=== PATIENT | female | born 1990 | race Caucasian/White ===

== ENCOUNTER 2017-12-23 23:05 | Emergency (ER) | payer BC ==
--- NOTE | 2017-12-23 23:40 | ERPHSYRPT ---
- History of Present Illness Time Seen by Provider: 12/23/17 23:34 Source: patient, family Exam Limitations: no limitations Patient Subjective Stated Complaint: pt jumped off mower and landed on ankle Triage Nursing Assessment: pt is alert and oriented. pt was brought in via wheelchair. pt has some obvious swelling to right ankle. some bruising. no laceration or external injury. sensation intact. pt unable to put weight on foot. pedal pulses strong and equal. Physician History: The patient is a 27-year-old female with her family complaining that she twisted her right ankle around 9 PM when she stepped off a lawnmower, twisting her ankle. She placed ice on it. It is swollen and hurts for her to walk on it. Occurred: this evening Reason for Fall: tripped, fell from height Injuries/Pain Location: lower extremity (right ankle) Loss of Consciousness: no loss of consciousness Quality: aching, sharpness Severity of Pain-Max: moderate Severity of Pain-Current: moderate Modifying Factors: Improves With: cold therapy Associated Symptoms (Fall): trouble walking Allergies/Adverse Reactions: Latex, Natural Rubber Allergy (Verified 12/23/17 23:20) Hx Tetanus, Diphtheria Vaccination/Date Given: No Hx Influenza Vaccination/Date Given: No Immunizations Up to Date: Yes - Review of Systems Constitutional: No Fever, No Chills Eyes: No Symptoms Ears, Nose, & Throat: No Symptoms Respiratory: No Cough, No Dyspnea Cardiac: No Chest Pain, No Edema, No Syncope Abdominal/Gastrointestinal: No Abdominal Pain, No Nausea, No Vomiting, No Diarrhea Genitourinary Symptoms: No Dysuria Musculoskeletal: Fall, Injury, Joint Swelling Skin: No Rash Neurological: No Dizziness, No Focal Weakness, No Sensory Changes Psychological: No Symptoms Endocrine: No Symptoms Hematologic/Lymphatic: No Symptoms Immunological/Allergic: No Symptoms All Other Systems: Reviewed and Negative - Past Medical History Pertinent Past Medical History: Yes Neurological History: No Pertinent History ENT History: No Pertinent History Cardiac History: No Pertinent History Respiratory History: No Pertinent History Endocrine Medical History: No Pertinent History Musculoskeletal History: No Pertinent History GI Medical History: No Pertinent History History: No Pertinent History Psycho-Social History: No Pertinent History Female Reproductive Disorders: No Pertinent History Other Medical History: anemia - Past Surgical History Past Surgical History: Yes Neuro Surgical History: No Pertinent History Cardiac: No Pertinent History Respiratory: No Pertinent History Gastrointestinal: No Pertinent History Genitourinary: No Pertinent History Musculoskeletal: No Pertinent History Female Surgical History: No Pertinent History - Social History Smoking Status: Never smoker Exposure to second hand smoke: No Drug Use: none - Female History Hx Last Menstrual Period: 12/01/17 Hx Now: No - Nursing Vital Signs Nursing Vital Signs: Initial Vital Signs Pulse Rate 63 12/23/17 23:06 Respiratory Rate 16 12/23/17 23:06 Blood Pressure 104/75 12/23/17 23:06 O2 Sat by Pulse Oximetry 96 12/23/17 23:06 Pain Scale Pain Intensity 7 - [place] Coma Score Best Eye Response ([place]): (4) open spontaneously Best Verbal Response ([place]): (5) oriented Best Motor Response ([place]): (6) obeys commands [place] Total: 15 - Physical Exam General Appearance: no apparent distress, alert Head Injury: no evidence of injury Eye Exam: PERRL/EOMI ENT Exam: airway nml Neck Exam: normal inspection, No tenderness Respiratory/Chest Exam: normal breath sounds, No chest tenderness, No respiratory distress Cardiovascular Exam: normal heart sounds, regular rate/rhythm Gastrointestinal Exam: soft, No tenderness, No distention, No guarding, No ecchymosis Rectal Exam: not done Back Exam: normal inspection, No vertebral tenderness Extremity Exam: joint swelling (right lateral malleolus), limited range of motion, evidence of injury, pain with movement, swelling, tenderness Neurologic Exam: alert, oriented x 3, cooperative, sensation nml, No motor deficits Skin Exam: normal color, warm, dry SpO2 Interpretation: normal SpO2: 96 Oxygen Delivery: Room Air - Radiology Exams Right Ankle X-ray Interpretation: Interpreted by me, Negative, No Fracture Ordered Tests: Active Orders 24 hr Category Date Time Status Cold Application STAT Care 12/23/17 23:40 Active ANKLE (3 VIEWS) Stat Exams 12/23/17 23:40 Ordered - Departure Time of Disposition: 00:14 Departure Disposition: Home Clinical Impression: Moderate right ankle sprain Condition: Stable Critical Care Time: No Referrals: CELIA BECERRA [Primary Care Provider] - Additional Instructions: You have a moderate sprain of your right ankle. Keep the Declan wrap applied as needed. Take Tylenol 1000 mg and ibuprofen 800 mg every 8 hours as needed. Apply ice to the ankle 3 times a day for 15 minutes at a time. Elevate your ankle as much as possible for the next 2 days. Use crutches as needed. Follow- up in 2-3 days if no improvement.
[2017-12-24 00:09] VITALS: BP 103/58
[2017-12-24 00:39] VITALS: PULSE 61; O2SAT 97
--- NOTE | 2017-12-24 08:37 | XRAY ---
Indication: Pain and swelling following injury. Comparison: None 3 views of the right ankle demonstrates mild soft tissue swelling. No other bony, articular, or soft tissue abnormalities.
== END 2017-12-24 00:37 | disposition home or self-care (01) ==
LOC: ED 23:05
DX: S93.401A Sprain of unspecified ligament of right ankle, initial encounter (principal); X50.1XXA Overexertion from prolonged static or awkward postures, initial encounter; Y93.H2 Activity, gardening and landscaping; Y92.007 Garden or yard of unspecified non-institutional (private) residence as the place of occurrence of the external cause
CPT/HCPCS: 73610; 99283

== ENCOUNTER 2023-05-03 15:44 | Emergency (ER) | payer BC ==
[2023-05-03 16:05] VITALS: TEMP 97.4; O2SAT 99
[2023-05-03] MEDS ORDERED: Sodium Chloride 0.9% 1000 ML 1,000 ML IV STA (16:43)
[2023-05-03 16:52] LABS: HCG URINE TEST NEGATIVE (NEGATIVE)
--- NOTE | 2023-05-03 16:53 | ERPHSYRPT ---
- History of Present Illness Time Seen by Provider: 05/03/23 15:48 Source: patient Exam Limitations: no limitations Patient Subjective Stated Complaint: here for vaginal bleeding since friday, she states she is bleeding through tampon and pad. has some clots Triage Nursing Assessment: pt alert walked in. resp easy. skin w/dp. abd soft, urine clear. no edema noted Physician History: 32 years old female with history of Graves' disease, PCOS with irregular cycles not taking any medications presented in the ER with heavy bleeding since yesterday evening. Patient reports she went through multiple pads and tampon. Denies any pelvic or abdominal cramping/pain. Patient report having some clots. Dark blood. Reports having similar episodes in the past and does have history of anemia which gets worse. She is supposed to take iron but has not been. She does report feeling weak fatigued tired and some palpitations. Patient reports since noon her bleeding is a little better. Allergies/Adverse Reactions: Latex, Natural Rubber Allergy (Verified 05/03/23 16:05) Hx Tetanus, Diphtheria Vaccination/Date Given: No Hx Influenza Vaccination/Date Given: No Hx Pneumococcal Vaccination/Date Given: No Travel Risk - International Travel Have you traveled outside of the country in past 3 weeks: No - Coronavirus Screening Are you exhibiting any of the following symptoms?: No - Vaccine Status Have you recieved a Covid-19 vaccination: Yes [employer]: Goozzy - Vaccination Dates Date of 2cond Vaccination (if applicable): 2020 - Review of Systems Constitutional: Fatigue, Weakness Eyes: No Symptoms Ears, Nose, & Throat: No Symptoms Respiratory: No Symptoms Cardiac: No Symptoms Abdominal/Gastrointestinal: No Symptoms Genitourinary Symptoms: Vaginal Bleeding Musculoskeletal: No Symptoms Skin: No Symptoms Neurological: No Symptoms Psychological: No Symptoms Hematologic/Lymphatic: No Symptoms, Easy Bruising Immunological/Allergic: No Symptoms - Past Medical History Pertinent Past Medical History: Yes Neurological History: No Pertinent History ENT History: No Pertinent History Cardiac History: No Pertinent History Respiratory History: No Pertinent History Endocrine Medical History: No Pertinent History Musculoskeletal History: No Pertinent History GI Medical History: No Pertinent History History: No Pertinent History Psycho-Social History: No Pertinent History Female Reproductive Disorders: No Pertinent History Other Medical History: anemia ,graves disease - Past Surgical History Past Surgical History: Yes Neuro Surgical History: No Pertinent History Cardiac: No Pertinent History Respiratory: No Pertinent History Gastrointestinal: No Pertinent History Genitourinary: No Pertinent History Musculoskeletal: No Pertinent History Female Surgical History: No Pertinent History - Social History Smoking Status: Never smoker Exposure to second hand smoke: No Drug Use: none Patient Lives Alone: No - Female History Hx Last Menstrual Period: today Hx Now: No - Nursing Vital Signs Nursing Vital Signs: Initial Vital Signs Temperature 97.4 F 05/03/23 16:04 Pulse Rate 99 H 05/03/23 16:04 Respiratory Rate 18 05/03/23 16:04 Blood Pressure 103/74 05/03/23 16:04 O2 Sat by Pulse Oximetry 99 05/03/23 16:04 Pain Scale Pain Intensity 0 - Physical Exam General Appearance: no apparent distress, alert Eye Exam: PERRL/EOMI Ears, Nose, Throat Exam: normal ENT inspection Neck Exam: normal inspection, non-tender, supple, full range of motion Respiratory Exam: normal breath sounds, lungs clear Cardiovascular Exam: regular rate/rhythm, normal heart sounds Gastrointestinal/Abdomen Exam: soft, normal bowel sounds, No tenderness Back Exam: normal inspection, normal range of motion Extremity Exam: normal inspection, normal range of motion Neurologic Exam: alert, oriented x 3, cooperative Skin Exam: normal color SpO2 Interpretation: normal SpO2: 99 O2 Delivery: Room Air Ordered Tests: Active Orders 24 hr Category Date Time Status IV Insertion STAT Care 05/03/23 16:43 Active CBC W DIFF Stat Lab 05/03/23 17:00 Completed CMP Stat Lab 05/03/23 17:00 Completed HCG QUALITATIVE, URINE Stat Lab 05/03/23 16:46 Completed TSH [TSH, 3RD Generation] Stat Lab 05/03/23 17:00 Completed UA W/RFX UR CULTURE Stat Lab 05/03/23 16:46 Completed Medication Summary Discontinued Medications Generic Name Dose Route Start Last Admin Trade Name Freq PRN Reason Stop Dose Admin Ferrous Sulfate 325 mg 05/03/23 19:12 Ferrous Sulfate 325 Mg Tablet PO 05/03/23 19:13 ONCE STA Sodium Chloride 1,000 mls @ 999 mls/hr 05/03/23 16:43 05/03/23 18:26 Sodium Chloride 0.9% 1000 Ml IV 05/03/23 17:43 Infused .Q1H1M STA Infusion Sodium Chloride Confirm 05/03/23 16:55 Sodium Chloride 0.9% 1000 Ml Administered 05/03/23 16:56 Dose 1,000 mls @ ud .ROUTE .STK-MED ONE Tranexamic Acid 1,000 mg/ 110 mls @ 660 mls/hr 05/03/23 18:20 05/03/23 18:31 Sodium Chloride IV 05/03/23 18:29 660 mls/hr ONCE ONE Administration Sodium Chloride Confirm 05/03/23 18:30 Sodium Chloride 0.9% Administered 05/03/23 18:31 Dose 100 mls @ ud .ROUTE .STK-MED ONE Medroxyprogesterone Acetate 10 mg 05/03/23 18:14 05/03/23 18:35 Medroxyprogesterone Acet 10 Mg Tablet PO 05/03/23 18:15 10 mg ONCE STA Administration Tranexamic Acid Confirm 05/03/23 18:29 Tranexamic Acid 1000 Mg/10 Ml Vial/Amp Administered 05/03/23 18:30 Dose 1,000 mg .ROUTE .STK-MED ONE Lab/Rad Data: Laboratory Result Diagrams 05/03/23 17:00 05/03/23 17:00 Laboratory Results 05/03/23 05/03/23 05/03/23 Range/Units 17:00 17:00 17:00 WBC 6.1 (4.0-10.5) x10^3/uL RBC 3.38 L (4.1-5.4) x10^6/uL Hgb 8.0 L (12.0-16.0) g/dL Hct 25.7 L (35-47) % MCV 76.0 L (78-100) fL MCH 23.7 L (26-32) pg MCHC 31.1 L (32-36) g/dL RDW 15.2 H (11.5-14.0) % Plt Count 302 (150-450) x10^3/uL MPV 9.7 (7.5-11.0) fL Gran % 55.9 (36.0-66.0) % Immature Gran % (Auto) 0.3 (0.00-0.4) % Nucleat RBC Rel Count 0.0 (0.00-0.1) % Eos # (Auto) 0.09 (0-0.5) x10^3/uL Immature Gran # (Auto) 0.02 (0.00-0.03) x10^3u/L Absolute Lymphs (auto) 2.15 (1.0-4.6) x10^3/uL Absolute Monos (auto) 0.43 (0.0-1.3) x10^3/uL Absolute Nucleated RBC 0.00 (0.00-0.01) x10^3u/L Lymphocytes % 35.0 (24.0-44.0) % Monocytes % 7.0 (0.0-12.0) % Eosinophils % 1.5 (0.00-5.0) % Basophils % 0.3 (0.0-0.4) % Absolute Granulocytes 3.43 (1.4-6.9) x10^3/uL Basophils # 0.02 (0-0.4) x10^3/uL Sodium 137 (137-145) mmol/L Potassium 3.6 (3.5-5.1) mmol/L Chloride 108 H (98-107) mmol/L Carbon Dioxide 21 L (22-30) mmol/L Anion Gap 12.0 (5-15) MEQ/L BUN 7 (7-17) mg/dL Creatinine 0.35 L (0.52-1.04) mg/dL Estimated GFR > 60.0 ML/MIN Glucose 73 L (74-106) mg/dL Calcium 8.3 L (8.4-10.2) mg/dL Total Bilirubin 0.30 (0.2-1.3) mg/dL AST 26 (14-36) U/L ALT 26 (0-35) U/L Alkaline Phosphatase 54 (38-126) U/L Serum Total Protein 6.2 L (6.3-8.2) g/dL Albumin 3.9 (3.5-5.0) g/dL TSH 3rd Generation 0.583 (0.47-4.68) mIU/L Urine Color (Yellow) Urine Appearance (Clear) Urine pH (4.6-8.0) Ur Specific [place] (1.005-1.030) Urine Protein (Negative) Urine Glucose (UA) (Negative) mg/dL Urine Ketones (Negative) Urine Blood (Negative) Urine Nitrite (Negative) Urine Bilirubin (Negative) Urine Urobilinogen (0.2) mg/dL Ur Leukocyte Esterase (Negative) U Hyaline Cast (Auto) (0-2) /LPF Urine Microscopic RBC (0-5) /HPF Urine Microscopic WBC (0-5) /HPF Ur Epithelial Cells (None Seen) /HPF Urine Bacteria (None Seen) /HPF Urine Culture Reflexed (NO) Urine HCG, Qual (NEGATIVE) 05/03/23 05/03/23 Range/Units 16:46 16:46 WBC (4.0-10.5) x10^3/uL RBC (4.1-5.4) x10^6/uL Hgb (12.0-16.0) g/dL Hct (35-47) % MCV (78-100) fL MCH (26-32) pg MCHC (32-36) g/dL RDW (11.5-14.0) % Plt Count (150-450) x10^3/uL MPV (7.5-11.0) fL Gran % (36.0-66.0) % Immature Gran % (Auto) (0.00-0.4) % Nucleat RBC Rel Count (0.00-0.1) % Eos # (Auto) (0-0.5) x10^3/uL Immature Gran # (Auto) (0.00-0.03) x10^3u/L Absolute Lymphs (auto) (1.0-4.6) x10^3/uL Absolute Monos (auto) (0.0-1.3) x10^3/uL Absolute Nucleated RBC (0.00-0.01) x10^3u/L Lymphocytes % (24.0-44.0) % Monocytes % (0.0-12.0) % Eosinophils % (0.00-5.0) % Basophils % (0.0-0.4) % Absolute Granulocytes (1.4-6.9) x10^3/uL Basophils # (0-0.4) x10^3/uL Sodium (137-145) mmol/L Potassium (3.5-5.1) mmol/L Chloride (98-107) mmol/L Carbon Dioxide (22-30) mmol/L Anion Gap (5-15) MEQ/L BUN (7-17) mg/dL Creatinine (0.52-1.04) mg/dL Estimated GFR ML/MIN Glucose (74-106) mg/dL Calcium (8.4-10.2) mg/dL Total Bilirubin (0.2-1.3) mg/dL AST (14-36) U/L ALT (0-35) U/L Alkaline Phosphatase (38-126) U/L Serum Total Protein (6.3-8.2) g/dL Albumin (3.5-5.0) g/dL TSH 3rd Generation (0.47-4.68) mIU/L Urine Color Yellow (Yellow) Urine Appearance Clear (Clear) Urine pH 5.5 (4.6-8.0) Ur Specific [place] <=1.005 (1.005-1.030) Urine Protein Negative (Negative) Urine Glucose (UA) Negative (Negative) mg/dL Urine Ketones 40 A (Negative) Urine Blood Large A (Negative) Urine Nitrite Negative (Negative) Urine Bilirubin Negative (Negative) Urine Urobilinogen 0.2 (0.2) mg/dL Ur Leukocyte Esterase Negative (Negative) U Hyaline Cast (Auto) NONE SEEN (0-2) /LPF Urine Microscopic RBC 0-2 (0-5) /HPF Urine Microscopic WBC 0-2 (0-5) /HPF Ur Epithelial Cells None Seen (None Seen) /HPF Urine Bacteria None Seen (None Seen) /HPF Urine Culture Reflexed NO (NO) Urine HCG, Qual NEGATIVE (NEGATIVE) - Progress Progress: improved, re-examined Air Movement: good Progress Note: 05/03/23 16:52 32 years old female with history of Graves' disease, PCOS with irregular cycles not taking any medications presented in the ER with heavy bleeding since yesterday evening. Patient reports she went through multiple pads and tampon. Denies any pelvic or abdominal cramping/pain. Patient report having some clots. Dark blood. Reports having similar episodes in the past and does have history of anemia which gets worse. She is supposed to take iron but has not been. She does report feeling weak fatigued tired and some palpitations. Patient reports since noon her bleeding is a little better. 05/03/23 19:34 Patient is hemodynamically stable. She is given fluids, on reevaluation she is feeling much better. She is ambulating in the ER without any limitation. Work- up showed normal white count but a hemoglobin of 8.0. She does not have any recent blood work done in the last couple of years and previous hemoglobin was in 13's. I believe patient has heavy periods and has chronic anemia. I have given her Provera and one-time dose of TXA IV. I hope it will improve her bleeding. I will continue with ferrous sulfate to go home and Provera for few days. I have discussed with Dr. Coffman, reviewed history, work-up and agreed with discharging home on Provera and outpatient follow-up with [facility]. I have discussed the results of work-up with patient and plan of discharge with outpatient follow-up and also signs symptoms of worsening needing return to ER which she seems understanding. Blood Culture(s) Obtained: No Antibiotics given: No Discussed with Dr.: Jose ([id number]) Counseled pt/family regarding: lab results, diagnosis, need for follow-up Medical Desision Making - Discussion of managment Care discussed with:: specialist (Dr. Coffman [id number]) Reviewed:: Test results, Need for additional workup Agreed on:: Treatment plan Will see patient: In office - Risk of complications The pt has a mod risk of morbidity or mortality based on: Need for prescription drug management - Departure Departure Disposition: Home Clinical Impression: Abnormal uterine bleeding (AUB), Blood loss anemia Condition: Stable Critical Care Time: No Referrals: CATHERINE FRENCH MD [Primary Care Provider] - Follow up with PCP 2 days JASMINA POWELL DO [ACTIVE STAFF] - Follow up/PCP as directed (In 2 days for reevaluation) Instructions: Heavy Periods (DC) Additional Instructions: Drink plenty of fluids to keep yourself well-hydrated. Continue with iron pills. Follow-up with [facility] for reevaluation in 2 days. Return to ER for worsening bleeding or if having chest pain palpitations, feeling dizzy lighthead ed etc. Prescriptions: Ferrous Sulfate 325 mg [Feosol 325 mg] 325 mg PO DAILY 30 Days #30 tablet Medroxyprogesterone Acet [Iqsxpny32 mg] 10 mg PO DAILY #7 tablet
[2023-05-03 16:55] LABS: ADD URINE CULTURE? NO (NO); Appearance Clear (Clear); Bacteria None Seen /HPF (None Seen); Bilirubin Negative (Negative); Blood Large (Negative); Epithelial Cells None Seen /HPF (None Seen); Glucose, Urine Negative (Negative); Hyaline Casts NONE SEEN /LPF (0-2); Ketones 40 (Negative); Leukocyte Esterase Negative (Negative); Nitrite Negative (Negative); Ph 5.5 (4.6-8.0); Protein,Urine Dip Negative (Negative); RBC 0-2 /HPF (0-5); Specific Gravity <=1.005 (1.005-1.030); Urobilinogen 0.2 mg/dL (0.2); WBC 0-2 /HPF (0-5)
[2023-05-03] MEDS ORDERED: Sodium Chloride 0.9% 1000 ML 1,000 ML ONE (16:55)
[2023-05-03 17:21] LABS: Absolute Neutrophil Ct (ANC) 3.43 x10^3/uL (1.4-6.9); BASOPHIL % 0.3 % (0.0-0.4); Basophil (Absolute #) 0.02 x10^3/uL (0-0.4); Eosinophil % 1.5 % (0.00-5.0); Eosinophil (Absolute #) 0.09 x10^3/uL (0-0.5); Hematocrit 25.7 % (35-47); IMMATURE GRAN # 0.02 x10^3u/L (0.00-0.03); IMMATURE GRAN % 0.3 % (0.00-0.4); Lymphocyte (Absolute #) 2.15 x10^3/uL (1.0-4.6); Mean Corpuscular Hemoglobin 23.7 pg (26-32); Mean Corpuscular Hgb Concent. 31.1 g/dL (32-36); Mean Platelet Volume 9.7 fL (7.5-11.0); Monocyte (Absolute #) 0.43 x10^3/uL (0.0-1.3); Neutrophil % 55.9 % (36.0-66.0); Platelet Count 302 x10^3/uL (150-450); Red Blood Count 3.38 x10^6/uL (4.1-5.4); Red Cell Distribution Width 15.2 % (11.5-14.0); White Blood Count 6.1 x10^3/uL (4.0-10.5)
[2023-05-03 17:23] LABS: ALBUMIN 3.9 g/dL (3.5-5.0); ALKALINE PHOSPHATASE 54 U/L (38-126); BLOOD UREA NITROGEN 7 mg/dL (7-17); CHLORIDE 108 mmol/L (98-107); Calcium 8.3 mg/dL (8.4-10.2); Carbon Dioxide 21 mmol/L (22-30); Creatinine 1 0.35 mg/dL (0.52-1.04); EST GLOMERULAR FILTRATION RATE > 60.0 ML/MIN; Glucose 73 mg/dL (74-106); Potassium 3.6 mmol/L (3.5-5.1); SGOT/AST 26 U/L (14-36); SGPT/ALT 26 U/L (0-35); SODIUM 137 mmol/L (137-145); Total Protein 6.2 g/dL (6.3-8.2)
[2023-05-03] MEDS ORDERED: PROVERA10 MG PO STA (18:14)
[2023-05-03] MEDS ORDERED: TRANEXAMIC ACID 1000 MG/10 ML 1,000 MG in Sodium Chloride 0.9% 100 ML IV ONE (18:20)
[2023-05-03] MEDS ORDERED: TRANEXAMIC ACID 1000 MG/10 ML ONE (18:29)
[2023-05-03] MEDS ORDERED: Sodium Chloride 0.9% 100 ML ONE (18:30)
[2023-05-03] MEDS ORDERED: FEOSOL 325 MG PO STA (19:12)
[2023-05-03 19:38] VITALS: BP 96/66; PULSE 84; RESP 20
== END 2023-05-03 19:53 | disposition home or self-care (01) ==
LOC: ED 15:44
DX: N92.1 Excessive and frequent menstruation with irregular cycle (principal); N93.9 Abnormal uterine and vaginal bleeding, unspecified; D50.0 Iron deficiency anemia secondary to blood loss (chronic); R53.1 Weakness; R53.83 Other fatigue
CPT/HCPCS: 36000; 36415; 80053; 81001; 81025; 84443; 85025; 96360; 99284; A9270-GY

== ENCOUNTER 2024-01-07 18:05 | Observation (INO) | payer BC, SELFPAY ==
--- NOTE | 2024-01-07 18:30 | ERPHSYRPT ---
- History of Present Illness Historian: patient Exam Limitations: no limitations Hx Tetanus, Diphtheria Vaccination/Date Given: No Hx Influenza Vaccination/Date Given: No Hx Pneumococcal Vaccination/Date Given: No <RAFY TRAYLOR - Last Filed: 01/07/24 18:51> <MOISÉS BLANDON - Last Filed: 01/07/24 19:55> - History of Present Illness Time Seen by Provider: 01/07/24 18:18 Physician History: Pt states for the past 20 days she has had daily uterine bleeding, some days going through 10 pads. 13 days ago she had 2 days of 8/10 cramps over the lower abdomen. Pt states she had a Hb today at [facility] of 5.8 and came to ER for evaluation. Pt denies chest pain, shortness of air, fever. Pt states she has been diagnosed with PCOS and has been taking progesterone for the past year(takes it for 15 days and usually has period 7 days after last dose). LMP was 12/13/23. Pt states she has had vaginal bleeding like this since 16 years old and has had 1 transfusion in the past. Pt saw Dr Starks today where he performed a uterine Biopsy with reportedly minimal bleeding. (RAFY TRAYLOR) Allergies/Adverse Reactions: Latex, Natural Rubber Allergy (Verified 01/07/24 18:22) Home Medications: No Reportable Medications [No Reported Medications] 01/07/24 [History] - Review of Systems Constitutional: No Fever, No Chills Ears, Nose, & Throat: No Ear Pain, No Throat Pain Respiratory: No Dyspnea Cardiac: No Chest Pain Abdominal/Gastrointestinal: Abdominal Pain Genitourinary Symptoms: Vaginal Bleeding (since 20 days ago) Neurological: Dizziness (since yesterday), No Headache <RAFY TRAYLOR - Last Filed: 01/07/24 18:51> - Past Medical History Pertinent Past Medical History: Yes Neurological History: No Pertinent History ENT History: No Pertinent History Cardiac History: No Pertinent History Respiratory History: No Pertinent History Endocrine Medical History: No Pertinent History Musculoskeletal History: No Pertinent History GI Medical History: No Pertinent History History: No Pertinent History Psycho-Social History: No Pertinent History Female Reproductive Disorders: No Pertinent History Other Medical History: anemia ,graves disease - Past Surgical History Past Surgical History: Yes Neuro Surgical History: No Pertinent History Cardiac: No Pertinent History Respiratory: No Pertinent History Gastrointestinal: No Pertinent History Genitourinary: No Pertinent History Musculoskeletal: No Pertinent History Female Surgical History: No Pertinent History - Social History Smoking Status: Never smoker Exposure to second hand smoke: No Drug Use: none Patient Lives Alone: No <RAFY TRAYLOR - Last Filed: 01/07/24 18:51> - Physical Exam General Appearance: alert Eye Exam: PERRL/EOMI Ears, Nose, Throat Exam: TMs normal, No pharyngeal erythema Neck Exam: normal inspection Respiratory Exam: lungs clear Cardiovascular Exam: murmur (1/6 systolic murmur) Gastrointestinal/Abdomen Exam: soft, normal bowel sounds Back Exam: normal inspection Extremity Exam: No pedal edema Neurologic Exam: alert, cooperative Skin Exam: pale <RAFY TRAYLOR - Last Filed: 01/07/24 18:51> - Nursing Vital Signs Nursing Vital Signs: Initial Vital Signs Temperature 98.1 F 01/07/24 18:30 Pulse Rate 95 H 01/07/24 18:30 Respiratory Rate 20 01/07/24 18:30 Blood Pressure 100/79 01/07/24 18:30 O2 Sat by Pulse Oximetry 100 01/07/24 18:30 Pain Scale Pain Intensity 0 Ordered Tests: Active Orders 24 hr Category Date Time Status IV Insertion STAT Care 01/07/24 18:35 Active ABDOMEN AND PELVIS W/0 CONTRAS [CT] Stat Exams 01/07/24 18:36 Taken AMYLASE Stat Lab 01/07/24 18:29 Completed CBC W DIFF Stat Lab 01/07/24 18:29 Completed CMP Stat Lab 01/07/24 18:29 Completed HCG QUALITATIVE, SERUM Stat Lab 01/07/24 18:29 Completed LIPASE Stat Lab 01/07/24 18:29 Completed PROTIME WITH INR Stat Lab 01/07/24 18:29 Completed PTT Stat Lab 01/07/24 18:29 Completed UA W/RFX UR CULTURE Stat Lab 01/07/24 18:15 Completed Transfer Order Routine Transfer 01/07/24 Ordered Medication Summary Generic Name Dose Route Start Last Admin Trade Name Freq PRN Reason Stop Dose Admin Sodium Chloride 1,000 mls @ 100 mls/hr 01/07/24 18:45 01/07/24 19:25 Sodium Chloride 0.9% 1000 Ml IV 02/06/24 18:44 100 mls/hr .Q10H LISA Administration Discontinued Medications Generic Name Dose Route Start Last Admin Trade Name Leslie PRN Reason Stop Dose Admin TRANEXAMIC ACID IN NACL,ISO-OS 1,000 mg in 100 mls @ 600 mls/hr 01/07/24 19:27 Tranexamic 1,000 Mg/100ml-Nacl IV 01/07/24 19:36 ONCE ONE Lab/Rad Data: Laboratory Result Diagrams 01/07/24 18:29 01/07/24 18:29 Laboratory Results 01/07/24 01/07/24 01/07/24 Range/Units 18:29 18:29 18:29 WBC (3.98-10.04) x10^3/uL RBC (3.93-5.22) x10^6/uL Hgb (11.2-15.7) g/dL Hct (34.1-44.9) % MCV (79.4-94.8) fL MCH (25.6-32.2) pg MCHC (32.2-35.5) g/dL RDW (11.7-14.4) % Plt Count (182-369) x10^3/uL MPV (9.4-12.3) fL Gran % (34.0-71.1) % Immature Gran % (Auto) (0.001-0.429) % Nucleat RBC Rel Count (0.00-0.2) % Eos # (Auto) (0.04-0.36) x10^3/uL Immature Gran # (Auto) (0.001-0.031) x10^3u/L Absolute Lymphs (auto) (1.18-3.74) x10^3/uL Absolute Monos (auto) (0.24-0.86) x10^3/uL Absolute Nucleated RBC (0.00-0.012) x10^3u/L Lymphocytes % (19.3-51.7) % Monocytes % (4.7-12.5) % Eosinophils % (0.7-5.8) % Basophils % (0.1-1.2) % Absolute Granulocytes (1.56-6.13) x10^3/uL Basophils # (0.01-0.08) x10^3/uL PT 10.9 (9.4-12.5) SECONDS INR 1.00 (0.8-3.0) APTT 25.1 (25.1-36.5) SECONDS Sodium 139 (135-145) mmol/L Potassium 3.9 (3.5-5.1) mmol/L Chloride 110 H (98-107) mmol/L Carbon Dioxide 22 (22-30) mmol/L Anion Gap 11.6 (5-15) MEQ/L BUN 5 L (7-17) mg/dL Creatinine 0.47 L (0.52-1.04) mg/dL Estimated GFR 130.5 ML/MIN Glucose 101 (74-106) mg/dL Calcium 9.1 (8.4-10.2) mg/dL Total Bilirubin 0.40 (0.2-1.3) mg/dL AST 24 (14-36) U/L ALT 19 (0-35) U/L Alkaline Phosphatase 50 (38-126) U/L Serum Total Protein 6.3 (6.3-8.2) g/dL Albumin 3.9 (3.5-5.0) g/dL Amylase 57 (30-110) U/L Lipase 67 (23-300) U/L Serum HCG, Qual NEGATIVE (NEGATIVE) Urine Color (Yellow) Urine Appearance (Clear) Urine pH (4.6-8.0) Ur Specific [place] (1.005-1.030) Urine Protein (Negative) Urine Glucose (UA) (Negative) mg/dL Urine Ketones (Negative) Urine Blood (Negative) Urine Nitrite (Negative) Urine Bilirubin (Negative) Urine Urobilinogen (0.2) mg/dL Ur Leukocyte Esterase (Negative) U Hyaline Cast (Auto) (0-2) /LPF Urine Microscopic RBC (0-5) /HPF Urine Microscopic WBC (0-5) /HPF Ur Epithelial Cells (None Seen) /HPF Urine Bacteria (None Seen) /HPF Urine Culture Reflexed (NO) 01/07/24 01/07/24 Range/Units 18:29 18:15 WBC 5.2 (3.98-10.04) x10^3/uL RBC 2.57 L (3.93-5.22) x10^6/uL Hgb 5.5 L* (11.2-15.7) g/dL Hct 18.5 L (34.1-44.9) % MCV 72.0 L (79.4-94.8) fL MCH 21.4 L (25.6-32.2) pg MCHC 29.7 L (32.2-35.5) g/dL RDW 18.0 H (11.7-14.4) % Plt Count 347 (182-369) x10^3/uL MPV 9.4 (9.4-12.3) fL Gran % 56.8 (34.0-71.1) % Immature Gran % (Auto) 0.4 (0.001-0.429) % Nucleat RBC Rel Count 0.6 H (0.00-0.2) % Eos # (Auto) 0.06 (0.04-0.36) x10^3/uL Immature Gran # (Auto) 0.02 (0.001-0.031) x10^3u/L Absolute Lymphs (auto) 1.69 (1.18-3.74) x10^3/uL Absolute Monos (auto) 0.45 (0.24-0.86) x10^3/uL Absolute Nucleated RBC 0.03 H (0.00-0.012) x10^3u/L Lymphocytes % 32.5 (19.3-51.7) % Monocytes % 8.7 (4.7-12.5) % Eosinophils % 1.2 (0.7-5.8) % Basophils % 0.4 (0.1-1.2) % Absolute Granulocytes 2.96 (1.56-6.13) x10^3/uL Basophils # 0.02 (0.01-0.08) x10^3/uL PT (9.4-12.5) SECONDS INR (0.8-3.0) APTT (25.1-36.5) SECONDS Sodium (135-145) mmol/L Potassium (3.5-5.1) mmol/L Chloride (98-107) mmol/L Carbon Dioxide (22-30) mmol/L Anion Gap (5-15) MEQ/L BUN (7-17) mg/dL Creatinine (0.52-1.04) mg/dL Estimated GFR ML/MIN Glucose (74-106) mg/dL Calcium (8.4-10.2) mg/dL Total Bilirubin (0.2-1.3) mg/dL AST (14-36) U/L ALT (0-35) U/L Alkaline Phosphatase (38-126) U/L Serum Total Protein (6.3-8.2) g/dL Albumin (3.5-5.0) g/dL Amylase (30-110) U/L Lipase (23-300) U/L Serum HCG, Qual (NEGATIVE) Urine Color Yellow (Yellow) Urine Appearance Clear (Clear) Urine pH 5.5 (4.6-8.0) Ur Specific [place] <=1.005 (1.005-1.030) Urine Protein Negative (Negative) Urine Glucose (UA) Negative (Negative) mg/dL Urine Ketones Negative (Negative) Urine Blood Moderate A (Negative) Urine Nitrite Negative (Negative) Urine Bilirubin Negative (Negative) Urine Urobilinogen 0.2 (0.2) mg/dL Ur Leukocyte Esterase Negative (Negative) U Hyaline Cast (Auto) NONE SEEN (0-2) /LPF Urine Microscopic RBC 3-5 (0-5) /HPF Urine Microscopic WBC 0-2 (0-5) /HPF Ur Epithelial Cells None Seen (None Seen) /HPF Urine Bacteria None Seen (None Seen) /HPF Urine Culture Reflexed NO (NO) - Progress Progress: improved Counseled pt/family regarding: lab results, diagnosis <ROLANDROXANNEMOISÉS - Last Filed: 01/07/24 19:55> - Progress Progress Note: Dr. Flores requested 3 units for transfusion. [address] Traylor. I called lab to set up a 3rd unit per Dr. Flores request. Additionally Dr. Starks requested a gram of TXA. TXA ordered per Dr. Starks's request. Patient will require hospitalization for complete transfusion and monitoring. Case discussed with Dr. Teran hospitalist at 7:38 PM. Patient accepted to Dr. Teran service. Admit orders entered. Dr. Starks placed on consult. 33-year-old female presents to our ED as a referral from her [employer]PER[employer] physician for symptomatic vaginal bleeding. Hemoglobin 5.5. Patient initially evaluated and treated by Dr. Traylor patient endorsed to Dr. Blandon at approximately 7 PM for admission. I spoke to hospitalist as stated above. Patient will be admitted for further evaluation and treatment. Plan of care discussed with patient. She agrees to admission [facility] for further evaluation and treatment. Portions of this note were created with voice recognition technology. There may be grammatical, spelling, punctuation or sound alike errors Complexity problem addressed is high, threat to bodily function Complexity of data reviewed and analyzed is extensive. Test ordered test reviewed results analyzed and correlated clinically with history and physical examination. Management discussed with hospitalist who accepts admission to observation. Critical care time is 108 minutes. Immediate action required to prevent further deterioration. Risk of complication and or risk of morbidity/mortality patient management is high. Patient requires hospitalization for further evaluation and treatment. Blood transfusion initiated. TXA administered Vital stable. Time spent admit patient is approximately 30 minutes. Plan of care established for shared decision making. No social determinants of health present impede follow-up. Portions of this note were created with voice recognition technology. There may be grammatical, spelling, punctuation or sound alike errors 01/07/24 19:46 01/07/24 19:54 (MOISÉS BLANDON) - Departure Departure Disposition: Observation Critical Care Time: No <RAFY TRAYLOR - Last Filed: 01/07/24 18:51> - Departure Critical Care Time: Yes Critical Care Time(excluding separately billable procedures): Critical 105-134 mins <MOISÉS BLANDON - Last Filed: 01/07/24 19:55> - Departure Clinical Impression: Vaginal bleeding, Anemia Condition: Stable Referrals: CATHERINE FRENCH MD [Primary Care Provider] - Follow up/PCP as directed
[2024-01-07 18:47] LABS: Absolute Neutrophil Ct (ANC) 2.96 x10^3/uL (1.56-6.13); BASOPHIL % 0.4 % (0.1-1.2); Basophil (Absolute #) 0.02 x10^3/uL (0.01-0.08); Eosinophil % 1.2 % (0.7-5.8); Eosinophil (Absolute #) 0.06 x10^3/uL (0.04-0.36); Hematocrit 18.5 % (34.1-44.9); IMMATURE GRAN # 0.02 x10^3u/L (0.001-0.031); IMMATURE GRAN % 0.4 % (0.001-0.429); Lymphocyte (Absolute #) 1.69 x10^3/uL (1.18-3.74); Lymphocytes % 32.5 % (19.3-51.7); Mean Corpuscular Hemoglobin 21.4 pg (25.6-32.2); Mean Corpuscular Hgb Concent. 29.7 g/dL (32.2-35.5); Mean Platelet Volume 9.4 fL (9.4-12.3); Monocyte (Absolute #) 0.45 x10^3/uL (0.24-0.86); Monocytes % 8.7 % (4.7-12.5); NUCLEATED RBC # 0.03 x10^3u/L (0.00-0.012); NUCLEATED RBC % 0.6 % (0.00-0.2); Neutrophil % 56.8 % (34.0-71.1); Platelet Count 347 x10^3/uL (182-369); Red Blood Count 2.57 x10^6/uL (3.93-5.22); White Blood Count 5.2 x10^3/uL (3.98-10.04)
[2024-01-07 18:49] LABS: Hemoglobin 5.5 g/dL (11.2-15.7)
[2024-01-07 18:59] LABS: ALBUMIN 3.9 g/dL (3.5-5.0); ANION GAP 11.6 MEQ/L (5-15); BILIRUBIN,TOTAL 0.4 mg/dL (0.2-1.3); Calcium 9.1 mg/dL (8.4-10.2); Creatinine 1 0.47 mg/dL (0.52-1.04); EST GLOMERULAR FILTRATION RATE 130.5 ML/MIN; HCG SERUM TEST NEGATIVE (NEGATIVE); Potassium 3.9 mmol/L (3.5-5.1); Total Protein 6.3 g/dL (6.3-8.2)
[2024-01-07 19:01] LABS: ADD URINE CULTURE? NO (NO); Appearance Clear (Clear); Bacteria None Seen /HPF (None Seen); Bilirubin Negative (Negative); Blood Moderate (Negative); Epithelial Cells None Seen /HPF (None Seen); Glucose, Urine Negative (Negative); Hyaline Casts NONE SEEN /LPF (0-2); Ketones Negative (Negative); Leukocyte Esterase Negative (Negative); Nitrite Negative (Negative); Ph 5.5 (4.6-8.0); Protein,Urine Dip Negative (Negative); Specific Gravity <=1.005 (1.005-1.030); Urobilinogen 0.2 mg/dL (0.2); WBC 0-2 /HPF (0-5)
[2024-01-07 19:02] LABS: PROTIME 10.9 SECONDS (9.4-12.5); PTT 25.1 SECONDS (25.1-36.5)
[2024-01-07] MEDS: Sodium Chloride 0.9% 1000 ML 1,000 ML IV SCH (19:25)
[2024-01-07] MEDS ORDERED: TRANEXAMIC 1,000 MG/100ML-NACL 1,000 MG/100 ML PIGGYBACK IV ONE (20:01)
[2024-01-07] MEDS: TRANEXAMIC 1,000 MG/100ML-NACL 1,000 MG/100 ML PIGGYBACK IV ONE (20:04)
[2024-01-07 20:51] LABS: ABO TYPING O; Antibody Screen NEGATIVE (NEGATIVE); RH TYPING POSITIVE
[2024-01-07 20:55] LABS: CROSS MATCH (PRBC) COMPATIBLE (COMPATIBLE)
[2024-01-07 20:57] LABS: CROSS MATCH (PRBC) COMPATIBLE (COMPATIBLE)
[2024-01-07 20:59] LABS: CROSS MATCH (PRBC) COMPATIBLE (COMPATIBLE)
[2024-01-07] MEDS ORDERED: TYLENOL 325 MG PO PRN (21:09)
[2024-01-07] MEDS ORDERED: Docusate Sodium 100 MG PO PRN (21:09)
[2024-01-07] MEDS ORDERED: Zofran 4 MG/2 ML VIAL IV PRN (21:09)
[2024-01-07] MEDS ORDERED: BENADRYL 25 MG CAPSULE PO PRN (21:12)
[2024-01-07] MEDS ORDERED: NON-FORMULARY ITEM (Progesterone, Micronized [Progesterone] 200 MG Capsule) PO SCH (22:00)
--- NOTE | 2024-01-07 22:55 | PCM.HP ---
History of Present Illness - Chief Complaint Chief Complaint: Vaginal bleeding, Symptomatic anemia Date: 01/07/24 History of Present Illness: is a 33 year old female who follows with Dr. Starks, and now presented to the ED for daily uterine bleeding for the past 20 days, some days going through 10 pads. 13 days ago she had 2 days of 8/10 cramps over the lower abdomen. Pt states she had a Hb today at [facility] of 5.8 and came to ER for evaluation. Pt denies chest pain, shortness of air, fever. Pt states she has been diagnosed with PCOS and has been taking progesterone for the past year(takes it for 15 days and usually has period 7 days after last dose). LMP w as 12/13/23. Pt states she has had vaginal bleeding like this since 16 years old and has had 1 transfusion in the past. Pt saw Dr Starks today where he performed a uterine Biopsy with reportedly minimal bleeding. Dr. Starks recommended transfusion of 3 units PRBC, transexamic acid (administered in ED), and gynecology consultation. At the time of my evaluation, the patient has no reported dizziness or dyspnea. The patient's is at bedside during my assessment. - Review of Systems Constitutional: No Symptoms Eyes: No Symptoms Ears, Nose, & Throat: No Symptoms Respiratory: No Symptoms Abdominal/Gastrointestinal: No Symptoms Genitourinary Symptoms: Vaginal Bleeding Musculoskeletal: No Symptoms Skin: No Symptoms Neurological: No Symptoms Psychological: No Symptoms Endocrine: No Symptoms Hematologic/Lymphatic: No Symptoms Immunological/Allergic: No Symptoms All Other Systems: Reviewed and Negative Medications & Allergies Home Medications: Home Medication List Progesterone, Micronized [Progesterone] 200 mg PO UD 01/07/24 [History Confirmed 01/07/24] Allergies/Adverse Reactions: Allergies Allergy/AdvReac Type Severity Reaction Status Date / Time Latex, Natural Rubber Allergy Verified 01/07/24 18:22 - Past Medical History Past Medical History: Yes Neurological History: No Pertinent History ENT History: No Pertinent History Cardiac History: No Pertinent History Respiratory History: No Pertinent History Endocrine Medical History: No Pertinent History Musculoskelatal History: No Pertinent History GI Medical History: No Pertinent History History: No Pertinent History Pyscho-Social History: No Pertinent History Reproductive Disorders: Menstrual Problems Comment: anemia ,graves disease. abnormal vaginal bleeding. PCOS - Female History Are you now?: No - Past Surgical History Past Surgical History: Yes Neuro Surgical History: No Pertinent History Cardiac History: No Pertinent History Respiratory Surgery: No Pertinent History GI Surgical History: No Pertinent History Genitourinary Surgical Hx: No Pertinent History Musculskeletal Surgical Hx: No Pertinent History Female Surgical History: No Pertinent History Other Surgical History: polyp 3 years ago - Social History Smoking Status: Never smoker Exposure to second hand smoke: No Alcohol: None Drug Use: none - Social Determinants of Health Will the patient participate in the screening: Yes Do you worry about a steady place to live?: No Do you have any problems with any of the following?: No known problems In the past 12 months,have you had to go without utilities?: No Have you or anyone in your house had to go without enough: No Transportation Issues: No Has anyone in your support network made you feel unsafe?: No Does the patient want assistance with any of the above?: No - Physical Exam Vital Signs: Vital Signs - 24 hr Temp Pulse Resp BP BP Pulse Ox 01/07/24 22:06 83 01/07/24 21:45 99 01/07/24 21:11 98.5 F 79 18 110/63 98 01/07/24 20:00 85 21 100/65 98 01/07/24 19:30 98 H 12 108/67 97 01/07/24 19:00 94 H 16 105/61 100 01/07/24 18:30 98.1 F 95 H 20 100/79 100 General Appearance: no apparent distress, alert Neurologic Exam: alert, oriented x 3, cooperative, handbell choir director II-XII nml as tested, normal mood/affect, nml cerebellar function Eye Exam: PERRL/EOMI, eyes nml inspection Ears, Nose, Throat Exam: normal ENT inspection Neck Exam: normal inspection, non-tender, supple, full range of motion Respiratory Exam: normal breath sounds, lungs clear Cardiovascular Exam: regular rate/rhythm, normal heart sounds Gastrointestinal/Abdomen Exam: soft, normal bowel sounds Back Exam: normal range of motion Extremity Exam: normal inspection, normal range of motion Skin Exam: normal color Results - Labs Lab/Micro Results: Lab Results-Last 24 Hours 01/07/24 01/07/24 01/07/24 Range/Units 18:15 18:29 18:29 WBC 5.2 (3.98-10.04) x10^3/uL RBC 2.57 L (3.93-5.22) x10^6/uL Hgb 5.5 L* (11.2-15.7) g/dL Hct 18.5 L (34.1-44.9) % MCV 72.0 L (79.4-94.8) fL MCH 21.4 L (25.6-32.2) pg MCHC 29.7 L (32.2-35.5) g/dL RDW 18.0 H (11.7-14.4) % Plt Count 347 (182-369) x10^3/uL MPV 9.4 (9.4-12.3) fL Gran % 56.8 (34.0-71.1) % Immature Gran % (Auto) 0.4 (0.001-0.429) % Nucleat RBC Rel Count 0.6 H (0.00-0.2) % Eos # (Auto) 0.06 (0.04-0.36) x10^3/uL Immature Gran # (Auto) 0.02 (0.001-0.031) x10^3u/L Absolute Lymphs (auto) 1.69 (1.18-3.74) x10^3/uL Absolute Monos (auto) 0.45 (0.24-0.86) x10^3/uL Absolute Nucleated RBC 0.03 H (0.00-0.012) x10^3u/L Lymphocytes % 32.5 (19.3-51.7) % Monocytes % 8.7 (4.7-12.5) % Eosinophils % 1.2 (0.7-5.8) % Basophils % 0.4 (0.1-1.2) % Absolute Granulocytes 2.96 (1.56-6.13) x10^3/uL Basophils # 0.02 (0.01-0.08) x10^3/uL PT (9.4-12.5) SECONDS INR (0.8-3.0) APTT (25.1-36.5) SECONDS Sodium 139 (135-145) mmol/L Potassium 3.9 (3.5-5.1) mmol/L Chloride 110 H (98-107) mmol/L Carbon Dioxide 22 (22-30) mmol/L Anion Gap 11.6 (5-15) MEQ/L BUN 5 L (7-17) mg/dL Creatinine 0.47 L (0.52-1.04) mg/dL Estimated GFR 130.5 ML/MIN Glucose 101 (74-106) mg/dL Calcium 9.1 (8.4-10.2) mg/dL Total Bilirubin 0.40 (0.2-1.3) mg/dL AST 24 (14-36) U/L ALT 19 (0-35) U/L Alkaline Phosphatase 50 (38-126) U/L Serum Total Protein 6.3 (6.3-8.2) g/dL Albumin 3.9 (3.5-5.0) g/dL Amylase 57 (30-110) U/L Lipase 67 (23-300) U/L Serum HCG, Qual (NEGATIVE) Urine Color Yellow (Yellow) Urine Appearance Clear (Clear) Urine pH 5.5 (4.6-8.0) Ur Specific [place] <=1.005 (1.005-1.030) Urine Protein Negative (Negative) Urine Glucose (UA) Negative (Negative) mg/dL Urine Ketones Negative (Negative) Urine Blood Moderate A (Negative) Urine Nitrite Negative (Negative) Urine Bilirubin Negative (Negative) Urine Urobilinogen 0.2 (0.2) mg/dL Ur Leukocyte Esterase Negative (Negative) U Hyaline Cast (Auto) NONE SEEN (0-2) /LPF Urine Microscopic RBC 3-5 (0-5) /HPF Urine Microscopic WBC 0-2 (0-5) /HPF Ur Epithelial Cells None Seen (None Seen) /HPF Urine Bacteria None Seen (None Seen) /HPF Urine Culture Reflexed NO (NO) ABO Group Rh Factor Antibody Screen (NEGATIVE) Crossmatch (COMPATIBLE) 01/07/24 01/07/24 01/07/24 Range/Units 18:29 18:29 18:29 WBC (3.98-10.04) x10^3/uL RBC (3.93-5.22) x10^6/uL Hgb (11.2-15.7) g/dL Hct (34.1-44.9) % MCV (79.4-94.8) fL MCH (25.6-32.2) pg MCHC (32.2-35.5) g/dL RDW (11.7-14.4) % Plt Count (182-369) x10^3/uL MPV (9.4-12.3) fL Gran % (34.0-71.1) % Immature Gran % (Auto) (0.001-0.429) % Nucleat RBC Rel Count (0.00-0.2) % Eos # (Auto) (0.04-0.36) x10^3/uL Immature Gran # (Auto) (0.001-0.031) x10^3u/L Absolute Lymphs (auto) (1.18-3.74) x10^3/uL Absolute Monos (auto) (0.24-0.86) x10^3/uL Absolute Nucleated RBC (0.00-0.012) x10^3u/L Lymphocytes % (19.3-51.7) % Monocytes % (4.7-12.5) % Eosinophils % (0.7-5.8) % Basophils % (0.1-1.2) % Absolute Granulocytes (1.56-6.13) x10^3/uL Basophils # (0.01-0.08) x10^3/uL PT 10.9 (9.4-12.5) SECONDS INR 1.00 (0.8-3.0) APTT 25.1 (25.1-36.5) SECONDS Sodium (135-145) mmol/L Potassium (3.5-5.1) mmol/L Chloride (98-107) mmol/L Carbon Dioxide (22-30) mmol/L Anion Gap (5-15) MEQ/L BUN (7-17) mg/dL Creatinine (0.52-1.04) mg/dL Estimated GFR ML/MIN Glucose (74-106) mg/dL Calcium (8.4-10.2) mg/dL Total Bilirubin (0.2-1.3) mg/dL AST (14-36) U/L ALT (0-35) U/L Alkaline Phosphatase (38-126) U/L Serum Total Protein (6.3-8.2) g/dL Albumin (3.5-5.0) g/dL Amylase (30-110) U/L Lipase (23-300) U/L Serum HCG, Qual NEGATIVE (NEGATIVE) Urine Color (Yellow) Urine Appearance (Clear) Urine pH (4.6-8.0) Ur Specific [place] (1.005-1.030) Urine Protein (Negative) Urine Glucose (UA) (Negative) mg/dL Urine Ketones (Negative) Urine Blood (Negative) Urine Nitrite (Negative) Urine Bilirubin (Negative) Urine Urobilinogen (0.2) mg/dL Ur Leukocyte Esterase (Negative) U Hyaline Cast (Auto) (0-2) /LPF Urine Microscopic RBC (0-5) /HPF Urine Microscopic WBC (0-5) /HPF Ur Epithelial Cells (None Seen) /HPF Urine Bacteria (None Seen) /HPF Urine Culture Reflexed (NO) ABO Group O Rh Factor POSITIVE Antibody Screen NEGATIVE (NEGATIVE) Crossmatch COMPATIBLE (COMPATIBLE) 01/07/24 01/07/24 Range/Units 18:29 18:29 WBC (3.98-10.04) x10^3/uL RBC (3.93-5.22) x10^6/uL Hgb (11.2-15.7) g/dL Hct (34.1-44.9) % MCV (79.4-94.8) fL MCH (25.6-32.2) pg MCHC (32.2-35.5) g/dL RDW (11.7-14.4) % Plt Count (182-369) x10^3/uL MPV (9.4-12.3) fL Gran % (34.0-71.1) % Immature Gran % (Auto) (0.001-0.429) % Nucleat RBC Rel Count (0.00-0.2) % Eos # (Auto) (0.04-0.36) x10^3/uL Immature Gran # (Auto) (0.001-0.031) x10^3u/L Absolute Lymphs (auto) (1.18-3.74) x10^3/uL Absolute Monos (auto) (0.24-0.86) x10^3/uL Absolute Nucleated RBC (0.00-0.012) x10^3u/L Lymphocytes % (19.3-51.7) % Monocytes % (4.7-12.5) % Eosinophils % (0.7-5.8) % Basophils % (0.1-1.2) % Absolute Granulocytes (1.56-6.13) x10^3/uL Basophils # (0.01-0.08) x10^3/uL PT (9.4-12.5) SECONDS INR (0.8-3.0) APTT (25.1-36.5) SECONDS Sodium (135-145) mmol/L Potassium (3.5-5.1) mmol/L Chloride (98-107) mmol/L Carbon Dioxide (22-30) mmol/L Anion Gap (5-15) MEQ/L BUN (7-17) mg/dL Creatinine (0.52-1.04) mg/dL Estimated GFR ML/MIN Glucose (74-106) mg/dL Calcium (8.4-10.2) mg/dL Total Bilirubin (0.2-1.3) mg/dL AST (14-36) U/L ALT (0-35) U/L Alkaline Phosphatase (38-126) U/L Serum Total Protein (6.3-8.2) g/dL Albumin (3.5-5.0) g/dL Amylase (30-110) U/L Lipase (23-300) U/L Serum HCG, Qual (NEGATIVE) Urine Color (Yellow) Urine Appearance (Clear) Urine pH (4.6-8.0) Ur Specific [place] (1.005-1.030) Urine Protein (Negative) Urine Glucose (UA) (Negative) mg/dL Urine Ketones (Negative) Urine Blood (Negative) Urine Nitrite (Negative) Urine Bilirubin (Negative) Urine Urobilinogen (0.2) mg/dL Ur Leukocyte Esterase (Negative) U Hyaline Cast (Auto) (0-2) /LPF Urine Microscopic RBC (0-5) /HPF Urine Microscopic WBC (0-5) /HPF Ur Epithelial Cells (None Seen) /HPF Urine Bacteria (None Seen) /HPF Urine Culture Reflexed (NO) ABO Group Rh Factor Antibody Screen (NEGATIVE) Crossmatch COMPATIBLE COMPATIBLE (COMPATIBLE) - Radiology Impressions Radiology Exams & Impressions: Radiology Procedures Category Date Time Status ABDOMEN AND PELVIS W/0 CONTRAS [CT] Stat Exams 01/07/24 18:36 Taken Assessment/Plan (1) Blood loss anemia Current Visit: No Status: Acute Assessment & Plan: Transfuse. Monitor counts. Microcytic anemia noted. Likely will benefit from oral iron supplementation at discharge. Code(s): D50.0 - IRON DEFICIENCY ANEMIA SECONDARY TO BLOOD LOSS (CHRONIC) (2) Abnormal uterine bleeding (AUB) Current Visit: No Status: Acute Assessment & Plan: Dr. Starks to be consulted. Code(s): N93.9 - ABNORMAL UTERINE AND VAGINAL BLEEDING, UNSPECIFIED (3) PCOS (polycystic ovarian syndrome) Current Visit: Yes Status: Acute Assessment & Plan: Continue current regimen. Code(s): E28.2 - POLYCYSTIC OVARIAN SYNDROME (4) Vaginal bleeding Current Visit: Yes Status: Acute Assessment & Plan: As above, transfuse and gyncelogy to be consulted. Code(s): N93.9 - ABNORMAL UTERINE AND VAGINAL BLEEDING, UNSPECIFIED Telemedicine Encounter - Telemedicine Encounter Telemedicine Encounter: The entirety of this encounter was performed via Telemedicine"
[2024-01-08] MEDS ORDERED: Sodium Chloride 0.9% 250 ML 250 ML IV ONE (01:33)
[2024-01-08 05:25] LABS: BASOPHIL % 0.6 % (0.1-1.2); Basophil (Absolute #) 0.03 x10^3/uL (0.01-0.08); Eosinophil % 1.8 % (0.7-5.8); Eosinophil (Absolute #) 0.09 x10^3/uL (0.04-0.36); Hematocrit 23.4 % (34.1-44.9); Hemoglobin 7.5 g/dL (11.2-15.7); IMMATURE GRAN # 0.01 x10^3u/L (0.001-0.031); IMMATURE GRAN % 0.2 % (0.001-0.429); Lymphocyte (Absolute #) 2.02 x10^3/uL (1.18-3.74); Lymphocytes % 41.3 % (19.3-51.7); Mean Corpuscular Hgb Concent. 32.1 g/dL (32.2-35.5); Monocyte (Absolute #) 0.54 x10^3/uL (0.24-0.86); NUCLEATED RBC # 0.02 x10^3u/L (0.00-0.012); NUCLEATED RBC % 0.4 % (0.00-0.2); Neutrophil % 45.1 % (34.0-71.1); Platelet Count 245 x10^3/uL (182-369); Red Cell Distribution Width 20.5 % (11.7-14.4); White Blood Count 4.9 x10^3/uL (3.98-10.04)
[2024-01-08] MEDS ORDERED: MEDICATION INTERVENTION MC SCH (07:15)
--- NOTE | 2024-01-08 08:26 | PCM.CONS ---
History of Present Illness - Reason for Consult Chief Complaint: Vaginal bleeding, Symptomatic anemia Requesting Provider: MELLISSA STARR MD Consulting Provider: JASMINA POWELL DO History of Present Illness: is a 33 year old female. 33 yo g0 lmp 21 days ago admitted for severe anemia secondary to acute vaginal blood loss for the past 20 days. pt had been on monthly progesterone withdrawal she was taking for 12 days each month and had been having normal periods however a month ago forgot taking her progesterone for several days and subsequently starting bleeding and has not stopped. pt was noted having a hgb of 5.8 yesterday and was sent to er for evaluation for admission for blood transfusion. pt had co headaches and lightheadedness for the past several weeks and now states feeling much better. pt had endometrial biopsy done in the office yesterday and has had a D&C in the past for abnormal uterine bleeding. pt also had a D&C in november 2021 for thickened endometrium with normal pathology. vss afebrile abd; soft pelvic; minimal bleeding a/p abnormal uterine bleeding resloving will restart taking her progesterone on the first of every month for 12 days rx for tranexamic acid 650mg tid given in office yesterday should go home on iron supplementation should fu in office in 4 wks as already scheduled pt understands to call me for any issues she may have upon discharge Medications & Allergies Home Medications: Home Medication List Progesterone, Micronized [Progesterone] 200 mg PO UD 01/07/24 [History Confirmed 01/07/24] Allergies/Adverse Reactions: Allergies Allergy/AdvReac Type Severity Reaction Status Date / Time Latex, Natural Rubber Allergy Verified 01/07/24 18:22 - Past Medical History Past Medical History: Yes Neurological History: No Pertinent History ENT History: No Pertinent History Cardiac History: No Pertinent History Respiratory History: No Pertinent History Endocrine Medical History: No Pertinent History Musculoskelatal History: No Pertinent History GI Medical History: No Pertinent History History: No Pertinent History Pyscho-Social History: No Pertinent History Reproductive Disorders: Menstrual Problems Comment: anemia ,graves disease. abnormal vaginal bleeding. PCOS - Female History Are you now?: No - Past Surgical History Past Surgical History: Yes Neuro Surgical History: No Pertinent History Cardiac History: No Pertinent History Respiratory Surgery: No Pertinent History GI Surgical History: No Pertinent History Genitourinary Surgical Hx: No Pertinent History Musculskeletal Surgical Hx: No Pertinent History Female Surgical History: No Pertinent History Other Surgical History: polyp 3 years ago - Social History Smoking Status: Never smoker Exposure to second hand smoke: No Alcohol: None Drug Use: none - Social Determinants of Health Will the patient participate in the screening: Yes Do you worry about a steady place to live?: No Do you have any problems with any of the following?: No known problems In the past 12 months,have you had to go without utilities?: No Have you or anyone in your house had to go without enough: No Transportation Issues: No Has anyone in your support network made you feel unsafe?: No Does the patient want assistance with any of the above?: No - Physical Exam Vital Signs: Vital Signs - 24 hr Temp Pulse Resp BP BP Pulse Ox 01/08/24 08:00 98.2 F 68 18 111/79 98 01/07/24 23:52 98.2 F 79 99/56 01/07/24 22:06 83 01/07/24 21:45 99 01/07/24 21:11 98.5 F 79 18 110/63 98 01/07/24 20:00 85 21 100/65 98 01/07/24 19:30 98 H 12 108/67 97 01/07/24 19:00 94 H 16 105/61 100 01/07/24 18:30 98.1 F 95 H 20 100/79 100 General Appearance: no apparent distress Neurologic Exam: oriented x 3 Gastrointestinal/Abdomen Exam: soft Pelvic Exam: other (normal exam in office with minimal bleeding noted) Results - Labs Lab/Micro Results: Lab Results-Last 24 Hours 01/07/24 01/07/24 01/07/24 Range/Units 18:15 18:29 18:29 WBC 5.2 (3.98-10.04) x10^3/uL RBC 2.57 L (3.93-5.22) x10^6/uL Hgb 5.5 L* (11.2-15.7) g/dL Hct 18.5 L (34.1-44.9) % MCV 72.0 L (79.4-94.8) fL MCH 21.4 L (25.6-32.2) pg MCHC 29.7 L (32.2-35.5) g/dL RDW 18.0 H (11.7-14.4) % Plt Count 347 (182-369) x10^3/uL MPV 9.4 (9.4-12.3) fL Gran % 56.8 (34.0-71.1) % Immature Gran % (Auto) 0.4 (0.001-0.429) % Nucleat RBC Rel Count 0.6 H (0.00-0.2) % Eos # (Auto) 0.06 (0.04-0.36) x10^3/uL Immature Gran # (Auto) 0.02 (0.001-0.031) x10^3u/L Absolute Lymphs (auto) 1.69 (1.18-3.74) x10^3/uL Absolute Monos (auto) 0.45 (0.24-0.86) x10^3/uL Absolute Nucleated RBC 0.03 H (0.00-0.012) x10^3u/L Lymphocytes % 32.5 (19.3-51.7) % Monocytes % 8.7 (4.7-12.5) % Eosinophils % 1.2 (0.7-5.8) % Basophils % 0.4 (0.1-1.2) % Absolute Granulocytes 2.96 (1.56-6.13) x10^3/uL Basophils # 0.02 (0.01-0.08) x10^3/uL PT (9.4-12.5) SECONDS INR (0.8-3.0) APTT (25.1-36.5) SECONDS Sodium 139 (135-145) mmol/L Potassium 3.9 (3.5-5.1) mmol/L Chloride 110 H (98-107) mmol/L Carbon Dioxide 22 (22-30) mmol/L Anion Gap 11.6 (5-15) MEQ/L BUN 5 L (7-17) mg/dL Creatinine 0.47 L (0.52-1.04) mg/dL Estimated GFR 130.5 ML/MIN Glucose 101 (74-106) mg/dL Calcium 9.1 (8.4-10.2) mg/dL Total Bilirubin 0.40 (0.2-1.3) mg/dL AST 24 (14-36) U/L ALT 19 (0-35) U/L Alkaline Phosphatase 50 (38-126) U/L Serum Total Protein 6.3 (6.3-8.2) g/dL Albumin 3.9 (3.5-5.0) g/dL Amylase 57 (30-110) U/L Lipase 67 (23-300) U/L Serum HCG, Qual (NEGATIVE) Urine Color Yellow (Yellow) Urine Appearance Clear (Clear) Urine pH 5.5 (4.6-8.0) Ur Specific [place] <=1.005 (1.005-1.030) Urine Protein Negative (Negative) Urine Glucose (UA) Negative (Negative) mg/dL Urine Ketones Negative (Negative) Urine Blood Moderate A (Negative) Urine Nitrite Negative (Negative) Urine Bilirubin Negative (Negative) Urine Urobilinogen 0.2 (0.2) mg/dL Ur Leukocyte Esterase Negative (Negative) U Hyaline Cast (Auto) NONE SEEN (0-2) /LPF Urine Microscopic RBC 3-5 (0-5) /HPF Urine Microscopic WBC 0-2 (0-5) /HPF Ur Epithelial Cells None Seen (None Seen) /HPF Urine Bacteria None Seen (None Seen) /HPF Urine Culture Reflexed NO (NO) ABO Group Rh Factor Antibody Screen (NEGATIVE) Crossmatch (COMPATIBLE) 01/07/24 01/07/24 01/07/24 Range/Units 18:29 18:29 18:29 WBC (3.98-10.04) x10^3/uL RBC (3.93-5.22) x10^6/uL Hgb (11.2-15.7) g/dL Hct (34.1-44.9) % MCV (79.4-94.8) fL MCH (25.6-32.2) pg MCHC (32.2-35.5) g/dL RDW (11.7-14.4) % Plt Count (182-369) x10^3/uL MPV (9.4-12.3) fL Gran % (34.0-71.1) % Immature Gran % (Auto) (0.001-0.429) % Nucleat RBC Rel Count (0.00-0.2) % Eos # (Auto) (0.04-0.36) x10^3/uL Immature Gran # (Auto) (0.001-0.031) x10^3u/L Absolute Lymphs (auto) (1.18-3.74) x10^3/uL Absolute Monos (auto) (0.24-0.86) x10^3/uL Absolute Nucleated RBC (0.00-0.012) x10^3u/L Lymphocytes % (19.3-51.7) % Monocytes % (4.7-12.5) % Eosinophils % (0.7-5.8) % Basophils % (0.1-1.2) % Absolute Granulocytes (1.56-6.13) x10^3/uL Basophils # (0.01-0.08) x10^3/uL PT 10.9 (9.4-12.5) SECONDS INR 1.00 (0.8-3.0) APTT 25.1 (25.1-36.5) SECONDS Sodium (135-145) mmol/L Potassium (3.5-5.1) mmol/L Chloride (98-107) mmol/L Carbon Dioxide (22-30) mmol/L Anion Gap (5-15) MEQ/L BUN (7-17) mg/dL Creatinine (0.52-1.04) mg/dL Estimated GFR ML/MIN Glucose (74-106) mg/dL Calcium (8.4-10.2) mg/dL Total Bilirubin (0.2-1.3) mg/dL AST (14-36) U/L ALT (0-35) U/L Alkaline Phosphatase (38-126) U/L Serum Total Protein (6.3-8.2) g/dL Albumin (3.5-5.0) g/dL Amylase (30-110) U/L Lipase (23-300) U/L Serum HCG, Qual NEGATIVE (NEGATIVE) Urine Color (Yellow) Urine Appearance (Clear) Urine pH (4.6-8.0) Ur Specific [place] (1.005-1.030) Urine Protein (Negative) Urine Glucose (UA) (Negative) mg/dL Urine Ketones (Negative) Urine Blood (Negative) Urine Nitrite (Negative) Urine Bilirubin (Negative) Urine Urobilinogen (0.2) mg/dL Ur Leukocyte Esterase (Negative) U Hyaline Cast (Auto) (0-2) /LPF Urine Microscopic RBC (0-5) /HPF Urine Microscopic WBC (0-5) /HPF Ur Epithelial Cells (None Seen) /HPF Urine Bacteria (None Seen) /HPF Urine Culture Reflexed (NO) ABO Group O Rh Factor POSITIVE Antibody Screen NEGATIVE (NEGATIVE) Crossmatch COMPATIBLE (COMPATIBLE) 01/07/24 01/07/24 01/08/24 Range/Units 18:29 18:29 05:15 WBC 4.9 (3.98-10.04) x10^3/uL RBC 3.00 L (3.93-5.22) x10^6/uL Hgb 7.5 L D (11.2-15.7) g/dL Hct 23.4 L (34.1-44.9) % MCV 78.0 L D (79.4-94.8) fL MCH 25.0 L (25.6-32.2) pg MCHC 32.1 L (32.2-35.5) g/dL RDW 20.5 H (11.7-14.4) % Plt Count 245 (182-369) x10^3/uL MPV 9.0 L (9.4-12.3) fL Gran % 45.1 (34.0-71.1) % Immature Gran % (Auto) 0.2 (0.001-0.429) % Nucleat RBC Rel Count 0.4 H (0.00-0.2) % Eos # (Auto) 0.09 (0.04-0.36) x10^3/uL Immature Gran # (Auto) 0.01 (0.001-0.031) x10^3u/L Absolute Lymphs (auto) 2.02 (1.18-3.74) x10^3/uL Absolute Monos (auto) 0.54 (0.24-0.86) x10^3/uL Absolute Nucleated RBC 0.02 H (0.00-0.012) x10^3u/L Lymphocytes % 41.3 (19.3-51.7) % Monocytes % 11.0 (4.7-12.5) % Eosinophils % 1.8 (0.7-5.8) % Basophils % 0.6 (0.1-1.2) % Absolute Granulocytes 2.20 (1.56-6.13) x10^3/uL Basophils # 0.03 (0.01-0.08) x10^3/uL PT (9.4-12.5) SECONDS INR (0.8-3.0) APTT (25.1-36.5) SECONDS Sodium (135-145) mmol/L Potassium (3.5-5.1) mmol/L Chloride (98-107) mmol/L Carbon Dioxide (22-30) mmol/L Anion Gap (5-15) MEQ/L BUN (7-17) mg/dL Creatinine (0.52-1.04) mg/dL Estimated GFR ML/MIN Glucose (74-106) mg/dL Calcium (8.4-10.2) mg/dL Total Bilirubin (0.2-1.3) mg/dL AST (14-36) U/L ALT (0-35) U/L Alkaline Phosphatase (38-126) U/L Serum Total Protein (6.3-8.2) g/dL Albumin (3.5-5.0) g/dL Amylase (30-110) U/L Lipase (23-300) U/L Serum HCG, Qual (NEGATIVE) Urine Color (Yellow) Urine Appearance (Clear) Urine pH (4.6-8.0) Ur Specific [place] (1.005-1.030) Urine Protein (Negative) Urine Glucose (UA) (Negative) mg/dL Urine Ketones (Negative) Urine Blood (Negative) Urine Nitrite (Negative) Urine Bilirubin (Negative) Urine Urobilinogen (0.2) mg/dL Ur Leukocyte Esterase (Negative) U Hyaline Cast (Auto) (0-2) /LPF Urine Microscopic RBC (0-5) /HPF Urine Microscopic WBC (0-5) /HPF Ur Epithelial Cells (None Seen) /HPF Urine Bacteria (None Seen) /HPF Urine Culture Reflexed (NO) ABO Group Rh Factor Antibody Screen (NEGATIVE) Crossmatch COMPATIBLE COMPATIBLE (COMPATIBLE) - Radiology Impressions Radiology Exams & Impressions: Radiology Procedures Category Date Time Status ABDOMEN AND PELVIS W/0 CONTRAS [CT] Stat Exams 01/07/24 18:36 Taken Assessment/Plan (1) PCOS (polycystic ovarian syndrome) Current Visit: Yes Status: Acute Code(s): E28.2 - POLYCYSTIC OVARIAN SYNDROME (2) Abnormal uterine bleeding (AUB) Current Visit: No Status: Acute Code(s): N93.9 - ABNORMAL UTERINE AND VAGINAL BLEEDING, UNSPECIFIED (3) Blood loss anemia Current Visit: No Status: Acute Code(s): D50.0 - IRON DEFICIENCY ANEMIA SECONDARY TO BLOOD LOSS (CHRONIC) (4) Anemia Current Visit: Yes Status: Acute Code(s): D64.9 - ANEMIA, UNSPECIFIED (5) Vaginal bleeding Current Visit: Yes Status: Acute Code(s): N93.9 - ABNORMAL UTERINE AND VAGINAL BLEEDING, UNSPECIFIED
--- NOTE | 2024-01-08 09:14 | XRAY ---
Indication: Pain. Vaginal bleeding. Multiple contiguous axial images obtained through the abdomen and pelvis without contrast. Comparison: None Lung bases clear. Heart not enlarged. Stomach is distended with food/fluid. Partially contracted gallbladder without gallstones. Noncontrasted stomach and bowel loops appear nonobstructed with normal appendix. Mild fecal debris in ascending and transverse colon. No free fluid/air. Remaining liver, gallbladder, pancreas, spleen, adrenal glands, kidneys, ureters, bladder, uterus, and aorta are unremarkable for noncontrast exam. Osseous structures intact. No ventral or inguinal hernias. Impression: Negative CT head and/pelvis without contrast exam.
[2024-01-08 09:46] LABS: Hematocrit 26.5 % (34.1-44.9); Hemoglobin 8.5 g/dL (11.2-15.7)
--- NOTE | 2024-01-08 11:12 | PCM.DS ---
Discharge Summary Date of Admission: 01/07/24 20:52 Date of Discharge: 01/08/24 Admitting Physician: MELLISSA STARR MD Consults: Consults on Case 01/07/24 20:59 Consult Physician ROUTINE Primary Care Provider: CATHERINE FRENCH Allergies Allergies Latex, Natural Rubber Allergy (Verified 01/07/24 18:22) Hospital Summary - Hospital Course Hospital Course: 01/08/24 is a 33 year old female who follows with Dr. Powell. She presented to the ED for daily uterine bleeding for the past 20 days, some days going through 10 pads. 13 days ago she had 2 days of 8/10 cramps over the lower abdomen. Pt states she had a Hgb on 01/07/24 at [facility] of 5.8 and came to ER for evaluation. Pt denies chest pain, shortness of breath, or fever. Pt states she has been diagnosed with PCOS and has been taking progesterone for the past year(takes it for 15 days and usually has period 7 days after last dose). LMP was 12/13/23. Pt states she has had vaginal bleeding like this since 16 years old and has had 1 transfusion in the past. Pt saw Dr Powell on 01/06 where he performed a uterine Biopsy with reportedly minimal bleeding. Dr. Powell recommended transfusion of 3 units PRBC, transexamic acid (administered in ED), and gynecology consultation. Patient has no reported dizziness or dyspnea. The patient's is at bedside this AM. after 3 units of PRBC HGB is 8.5. Dr. Powell came to see pt today and discussed plan of care in detail with pt and . Per Dr. Powell request will d/c with iron PO TID. Pt has has very little bleeding today and would like to d/c. She denies weakness, CP, SOB, or abd. pain. - Vitals & Intake/Output Vital Signs: Vital Signs Temperature 98.2 F 01/08/24 08:00 Pulse Rate 68 01/08/24 08:00 Respiratory Rate 18 01/08/24 08:00 Blood Pressure 111/79 01/08/24 08:00 O2 Sat by Pulse Oximetry 98 01/08/24 08:00 Intake & Output: Intake & Output 06/17/24 06/18/24 06/19/24 06/20/24 11:59 11:59 11:59 11:59 Intake Total 1053 Balance 1053 Weight 81.5 kg - Lab Result Diagrams: 01/08/24 09:20 01/07/24 18:29 Lab Results-Last 24 Hrs: Lab Results-Last 24 Hours 01/07/24 01/07/24 01/07/24 Range/Units 18:15 18:29 18:29 WBC 5.2 (3.98-10.04) x10^3/uL RBC 2.57 L (3.93-5.22) x10^6/uL Hgb 5.5 L* (11.2-15.7) g/dL Hct 18.5 L (34.1-44.9) % MCV 72.0 L (79.4-94.8) fL MCH 21.4 L (25.6-32.2) pg MCHC 29.7 L (32.2-35.5) g/dL RDW 18.0 H (11.7-14.4) % Plt Count 347 (182-369) x10^3/uL MPV 9.4 (9.4-12.3) fL Gran % 56.8 (34.0-71.1) % Immature Gran % (Auto) 0.4 (0.001-0.429) % Nucleat RBC Rel Count 0.6 H (0.00-0.2) % Eos # (Auto) 0.06 (0.04-0.36) x10^3/uL Immature Gran # (Auto) 0.02 (0.001-0.031) x10^3u/L Absolute Lymphs (auto) 1.69 (1.18-3.74) x10^3/uL Absolute Monos (auto) 0.45 (0.24-0.86) x10^3/uL Absolute Nucleated RBC 0.03 H (0.00-0.012) x10^3u/L Lymphocytes % 32.5 (19.3-51.7) % Monocytes % 8.7 (4.7-12.5) % Eosinophils % 1.2 (0.7-5.8) % Basophils % 0.4 (0.1-1.2) % Absolute Granulocytes 2.96 (1.56-6.13) x10^3/uL Basophils # 0.02 (0.01-0.08) x10^3/uL PT (9.4-12.5) SECONDS INR (0.8-3.0) APTT (25.1-36.5) SECONDS Sodium 139 (135-145) mmol/L Potassium 3.9 (3.5-5.1) mmol/L Chloride 110 H (98-107) mmol/L Carbon Dioxide 22 (22-30) mmol/L Anion Gap 11.6 (5-15) MEQ/L BUN 5 L (7-17) mg/dL Creatinine 0.47 L (0.52-1.04) mg/dL Estimated GFR 130.5 ML/MIN Glucose 101 (74-106) mg/dL Calcium 9.1 (8.4-10.2) mg/dL Total Bilirubin 0.40 (0.2-1.3) mg/dL AST 24 (14-36) U/L ALT 19 (0-35) U/L Alkaline Phosphatase 50 (38-126) U/L Serum Total Protein 6.3 (6.3-8.2) g/dL Albumin 3.9 (3.5-5.0) g/dL Amylase 57 (30-110) U/L Lipase 67 (23-300) U/L Serum HCG, Qual (NEGATIVE) Urine Color Yellow (Yellow) Urine Appearance Clear (Clear) Urine pH 5.5 (4.6-8.0) Ur Specific [place] <=1.005 (1.005-1.030) Urine Protein Negative (Negative) Urine Glucose (UA) Negative (Negative) mg/dL Urine Ketones Negative (Negative) Urine Blood Moderate A (Negative) Urine Nitrite Negative (Negative) Urine Bilirubin Negative (Negative) Urine Urobilinogen 0.2 (0.2) mg/dL Ur Leukocyte Esterase Negative (Negative) U Hyaline Cast (Auto) NONE SEEN (0-2) /LPF Urine Microscopic RBC 3-5 (0-5) /HPF Urine Microscopic WBC 0-2 (0-5) /HPF Ur Epithelial Cells None Seen (None Seen) /HPF Urine Bacteria None Seen (None Seen) /HPF Urine Culture Reflexed NO (NO) ABO Group Rh Factor Antibody Screen (NEGATIVE) Crossmatch (COMPATIBLE) 01/07/24 01/07/24 01/07/24 Range/Units 18:29 18:29 18:29 WBC (3.98-10.04) x10^3/uL RBC (3.93-5.22) x10^6/uL Hgb (11.2-15.7) g/dL Hct (34.1-44.9) % MCV (79.4-94.8) fL MCH (25.6-32.2) pg MCHC (32.2-35.5) g/dL RDW (11.7-14.4) % Plt Count (182-369) x10^3/uL MPV (9.4-12.3) fL Gran % (34.0-71.1) % Immature Gran % (Auto) (0.001-0.429) % Nucleat RBC Rel Count (0.00-0.2) % Eos # (Auto) (0.04-0.36) x10^3/uL Immature Gran # (Auto) (0.001-0.031) x10^3u/L Absolute Lymphs (auto) (1.18-3.74) x10^3/uL Absolute Monos (auto) (0.24-0.86) x10^3/uL Absolute Nucleated RBC (0.00-0.012) x10^3u/L Lymphocytes % (19.3-51.7) % Monocytes % (4.7-12.5) % Eosinophils % (0.7-5.8) % Basophils % (0.1-1.2) % Absolute Granulocytes (1.56-6.13) x10^3/uL Basophils # (0.01-0.08) x10^3/uL PT 10.9 (9.4-12.5) SECONDS INR 1.00 (0.8-3.0) APTT 25.1 (25.1-36.5) SECONDS Sodium (135-145) mmol/L Potassium (3.5-5.1) mmol/L Chloride (98-107) mmol/L Carbon Dioxide (22-30) mmol/L Anion Gap (5-15) MEQ/L BUN (7-17) mg/dL Creatinine (0.52-1.04) mg/dL Estimated GFR ML/MIN Glucose (74-106) mg/dL Calcium (8.4-10.2) mg/dL Total Bilirubin (0.2-1.3) mg/dL AST (14-36) U/L ALT (0-35) U/L Alkaline Phosphatase (38-126) U/L Serum Total Protein (6.3-8.2) g/dL Albumin (3.5-5.0) g/dL Amylase (30-110) U/L Lipase (23-300) U/L Serum HCG, Qual NEGATIVE (NEGATIVE) Urine Color (Yellow) Urine Appearance (Clear) Urine pH (4.6-8.0) Ur Specific [place] (1.005-1.030) Urine Protein (Negative) Urine Glucose (UA) (Negative) mg/dL Urine Ketones (Negative) Urine Blood (Negative) Urine Nitrite (Negative) Urine Bilirubin (Negative) Urine Urobilinogen (0.2) mg/dL Ur Leukocyte Esterase (Negative) U Hyaline Cast (Auto) (0-2) /LPF Urine Microscopic RBC (0-5) /HPF Urine Microscopic WBC (0-5) /HPF Ur Epithelial Cells (None Seen) /HPF Urine Bacteria (None Seen) /HPF Urine Culture Reflexed (NO) ABO Group O Rh Factor POSITIVE Antibody Screen NEGATIVE (NEGATIVE) Crossmatch COMPATIBLE (COMPATIBLE) 01/07/24 01/07/24 01/08/24 Range/Units 18:29 18:29 05:15 WBC 4.9 (3.98-10.04) x10^3/uL RBC 3.00 L (3.93-5.22) x10^6/uL Hgb 7.5 L D (11.2-15.7) g/dL Hct 23.4 L (34.1-44.9) % MCV 78.0 L D (79.4-94.8) fL MCH 25.0 L (25.6-32.2) pg MCHC 32.1 L (32.2-35.5) g/dL RDW 20.5 H (11.7-14.4) % Plt Count 245 (182-369) x10^3/uL MPV 9.0 L (9.4-12.3) fL Gran % 45.1 (34.0-71.1) % Immature Gran % (Auto) 0.2 (0.001-0.429) % Nucleat RBC Rel Count 0.4 H (0.00-0.2) % Eos # (Auto) 0.09 (0.04-0.36) x10^3/uL Immature Gran # (Auto) 0.01 (0.001-0.031) x10^3u/L Absolute Lymphs (auto) 2.02 (1.18-3.74) x10^3/uL Absolute Monos (auto) 0.54 (0.24-0.86) x10^3/uL Absolute Nucleated RBC 0.02 H (0.00-0.012) x10^3u/L Lymphocytes % 41.3 (19.3-51.7) % Monocytes % 11.0 (4.7-12.5) % Eosinophils % 1.8 (0.7-5.8) % Basophils % 0.6 (0.1-1.2) % Absolute Granulocytes 2.20 (1.56-6.13) x10^3/uL Basophils # 0.03 (0.01-0.08) x10^3/uL PT (9.4-12.5) SECONDS INR (0.8-3.0) APTT (25.1-36.5) SECONDS Sodium (135-145) mmol/L Potassium (3.5-5.1) mmol/L Chloride (98-107) mmol/L Carbon Dioxide (22-30) mmol/L Anion Gap (5-15) MEQ/L BUN (7-17) mg/dL Creatinine (0.52-1.04) mg/dL Estimated GFR ML/MIN Glucose (74-106) mg/dL Calcium (8.4-10.2) mg/dL Total Bilirubin (0.2-1.3) mg/dL AST (14-36) U/L ALT (0-35) U/L Alkaline Phosphatase (38-126) U/L Serum Total Protein (6.3-8.2) g/dL Albumin (3.5-5.0) g/dL Amylase (30-110) U/L Lipase (23-300) U/L Serum HCG, Qual (NEGATIVE) Urine Color (Yellow) Urine Appearance (Clear) Urine pH (4.6-8.0) Ur Specific [place] (1.005-1.030) Urine Protein (Negative) Urine Glucose (UA) (Negative) mg/dL Urine Ketones (Negative) Urine Blood (Negative) Urine Nitrite (Negative) Urine Bilirubin (Negative) Urine Urobilinogen (0.2) mg/dL Ur Leukocyte Esterase (Negative) U Hyaline Cast (Auto) (0-2) /LPF Urine Microscopic RBC (0-5) /HPF Urine Microscopic WBC (0-5) /HPF Ur Epithelial Cells (None Seen) /HPF Urine Bacteria (None Seen) /HPF Urine Culture Reflexed (NO) ABO Group Rh Factor Antibody Screen (NEGATIVE) Crossmatch COMPATIBLE COMPATIBLE (COMPATIBLE) 01/08/24 Range/Units 09:20 WBC (3.98-10.04) x10^3/uL RBC (3.93-5.22) x10^6/uL Hgb 8.5 L (11.2-15.7) g/dL Hct 26.5 L (34.1-44.9) % MCV (79.4-94.8) fL MCH (25.6-32.2) pg MCHC (32.2-35.5) g/dL RDW (11.7-14.4) % Plt Count (182-369) x10^3/uL MPV (9.4-12.3) fL Gran % (34.0-71.1) % Immature Gran % (Auto) (0.001-0.429) % Nucleat RBC Rel Count (0.00-0.2) % Eos # (Auto) (0.04-0.36) x10^3/uL Immature Gran # (Auto) (0.001-0.031) x10^3u/L Absolute Lymphs (auto) (1.18-3.74) x10^3/uL Absolute Monos (auto) (0.24-0.86) x10^3/uL Absolute Nucleated RBC (0.00-0.012) x10^3u/L Lymphocytes % (19.3-51.7) % Monocytes % (4.7-12.5) % Eosinophils % (0.7-5.8) % Basophils % (0.1-1.2) % Absolute Granulocytes (1.56-6.13) x10^3/uL Basophils # (0.01-0.08) x10^3/uL PT (9.4-12.5) SECONDS INR (0.8-3.0) APTT (25.1-36.5) SECONDS Sodium (135-145) mmol/L Potassium (3.5-5.1) mmol/L Chloride (98-107) mmol/L Carbon Dioxide (22-30) mmol/L Anion Gap (5-15) MEQ/L BUN (7-17) mg/dL Creatinine (0.52-1.04) mg/dL Estimated GFR ML/MIN Glucose (74-106) mg/dL Calcium (8.4-10.2) mg/dL Total Bilirubin (0.2-1.3) mg/dL AST (14-36) U/L ALT (0-35) U/L Alkaline Phosphatase (38-126) U/L Serum Total Protein (6.3-8.2) g/dL Albumin (3.5-5.0) g/dL Amylase (30-110) U/L Lipase (23-300) U/L Serum HCG, Qual (NEGATIVE) Urine Color (Yellow) Urine Appearance (Clear) Urine pH (4.6-8.0) Ur Specific [place] (1.005-1.030) Urine Protein (Negative) Urine Glucose (UA) (Negative) mg/dL Urine Ketones (Negative) Urine Blood (Negative) Urine Nitrite (Negative) Urine Bilirubin (Negative) Urine Urobilinogen (0.2) mg/dL Ur Leukocyte Esterase (Negative) U Hyaline Cast (Auto) (0-2) /LPF Urine Microscopic RBC (0-5) /HPF Urine Microscopic WBC (0-5) /HPF Ur Epithelial Cells (None Seen) /HPF Urine Bacteria (None Seen) /HPF Urine Culture Reflexed (NO) ABO Group Rh Factor Antibody Screen (NEGATIVE) Crossmatch (COMPATIBLE) - Radiology Exams Ordered Rad Exams-Entire Visit: Radiology Procedures Category Date Time Status ABDOMEN AND PELVIS W/0 CONTRAS [CT] Stat Exams 01/07/24 18:36 Completed Discharge Exam General Appearance: no apparent distress, alert Neurologic Exam: alert, oriented x 3, cooperative, normal mood/affect, nml cerebellar function, sensation nml, No motor deficits Eye Exam: PERRL, EOMI, eyes nml inspection Ears, Nose, Throat Exam: normal ENT inspection, pharynx normal, moist mucous membranes Neck Exam: normal inspection, non-tender, supple, full range of motion Respiratory Exam: normal breath sounds, lungs clear, No respiratory distress Cardiovascular Exam: regular rate/rhythm, normal heart sounds Gastrointestinal/Abdomen Exam: soft, No tenderness, No mass Pelvic Exam: deferred Rectal Exam: deferred Back Exam: normal inspection, normal range of motion, No CVA tenderness, No vertebral tenderness Extremity Exam: normal inspection, normal range of motion Skin Exam: normal color, warm, dry Final Diagnosis/Problem List - Final Discharge Diagnosis/Problem (1) Blood loss anemia Current Visit: No Status: Acute Assessment & Plan: - 3units of PRBC - Hgb on admission 5.5, post transfusions 8.5 - Tranexamic acid gave in ER - NS @ 100ml/hr - Benadryl/ Zofran/ tylenol PRN - D/C with iron supplement TID Code(s): D50.0 - IRON DEFICIENCY ANEMIA SECONDARY TO BLOOD LOSS (CHRONIC) (2) Vaginal bleeding Current Visit: Yes Status: Acute Assessment & Plan: -As above, transfuse and gynecology to be consulted. Code(s): N93.9 - ABNORMAL UTERINE AND VAGINAL BLEEDING, UNSPECIFIED (3) Abnormal uterine bleeding (AUB) Current Visit: No Status: Acute Assessment & Plan: Dr. Powell to be consulted. Code(s): N93.9 - ABNORMAL UTERINE AND VAGINAL BLEEDING, UNSPECIFIED (4) PCOS (polycystic ovarian syndrome) Current Visit: Yes Status: Chronic Assessment & Plan: Continue current regimen. Code(s): E28.2 - POLYCYSTIC OVARIAN SYNDROME - Discharge Discharge Date: 01/08/24 Disposition: Home, Self-Care Condition: Stable Prescriptions: Continue Progesterone, Micronized [Progesterone] 200 mg PO UD Instructions: Ferrous Sulfate, Anemia, Possibly From Low Iron, Adult ED Follow up with: CATHERINE FRENCH MD [Primary Care Provider] - JASMINA POWELL DO [ACTIVE STAFF] -
[2024-01-08 12:17] VITALS: BP 124/89; PULSE 70; RESP 20; TEMP 98; O2SAT 99
== END 2024-01-08 12:02 | disposition home or self-care (01) ==
LOC: ED 18:05 → MED SURG 20:52
PROVIDERS: ADMIT Internal Medicine; ATTEND Internal Medicine
DX: D50.0 Iron deficiency anemia secondary to blood loss (chronic) (principal); N93.9 Abnormal uterine and vaginal bleeding, unspecified; E28.2 Polycystic ovarian syndrome; Z79.899 Other long term (current) drug therapy
CPT/HCPCS: 36000; 36415; 36430; 74176; 80053; 81001; 82150; 83690; 84703; 85014; 85018; 85025; 85610; 85730; 86850; 86900; 86901; 86922; 93268; 94762; 99285; 99291; 99292; G0378; P9016; Q3014